=== PATIENT | female | born 1950 | race Caucasian/White ===

== ENCOUNTER 2017-05-17 15:42 | Inpatient (IN) | payer BC ==
[~2017-05-17] VITALS: Ht 170.2 cm; Wt 91.5 kg
[2017-08-09] VITALS (11 sets, daily range): BP systolic 104–178; BP diastolic 54–101; PULSE 50–89; TEMP 98–98.9
[2017-08-09] MEDS ORDERED: MULTI-VITAMIN W1 TA2 PO (05:52)
[2017-08-09] MEDS ORDERED: ASPIRIN 81M81 MG/TA2 PO (05:52)
[2017-08-09] MEDS ORDERED: VITAMIN E1000 U/CAP PO (05:53)
[2017-08-09] MEDS ORDERED: CALCIUM 600MG+D1 TAB PO (05:53)
[2017-08-09] MEDS ORDERED: OMEGA-3 1000 MG1 CAP PO (05:54)
[2017-08-09] MEDS ORDERED: MASON NATURAL500 MG PO (05:54)
[2017-08-09] MEDS ORDERED: FOLIC ACID 40400 MCG PO (05:55)
[2017-08-09] MEDS ORDERED: VITAMIN C500 MG PO (05:55)
[2017-08-09] MEDS ORDERED: ZESTRIL40 MG PO (05:56)
[2017-08-09] MEDS ORDERED: ATIVAN 0.50.5 MG/TAB PO (05:57)
[2017-08-09] MEDS ORDERED: NATURAL IRON65 MG (05:57)
[2017-08-10] VITALS (7 sets, daily range): BP systolic 120–165; BP diastolic 71–84; PULSE 81–87; TEMP 98–99.3
[2017-08-10 07:17] LABS: HEMATOCRIT 32.7 % (37.0-47.0); HEMOGLOBIN 10.8 g/dl (12.5-16.0)
[2017-08-11 03:18] VITALS: BP 152/77; PULSE 90; TEMP 98.9
[2017-08-11 06:43] LABS: HEMATOCRIT 30.9 % (37.0-47.0); HEMOGLOBIN 10.4 g/dl (12.5-16.0)
[2017-08-11] MEDS ORDERED: ASPI325T6 PO (07:17)
[2017-08-11] MEDS ORDERED: NORCO 325 MG-7.1 TAB PO (07:17)
[2017-08-11] MEDS ORDERED: ROXICODONE 55 MG/TAB PO (07:18)
[2017-08-11] MEDS ORDERED: TYLENOL 500MG500 MG PO (07:18)
[2017-08-11] MEDS ORDERED: COLACE 100100 MG/CAP PO (07:21)
[2017-08-11 07:39] VITALS: BP 153/79; PULSE 91; TEMP 98.6
[2017-08-11 11:40] VITALS: BP 155/83; PULSE 88; TEMP 98.3
[2017-08-11 15:57] VITALS: BP 154/83; PULSE 87; TEMP 97.8
== END 2017-08-11 17:00 | disposition home or self-care (01) | DRG 470 ==
LOC: JCC 08-09 05:16
PROVIDERS: Orthopaedic Surgery
PROC: 0SRC0J9 Replacement of Right Knee Joint with Synthetic Substitute, Cemented, Open Approach (ICD-10-PCS; principal; 2017-08-09 07:30)
DX: M17.11 Unilateral primary osteoarthritis, right knee (principal); I10 Essential (primary) hypertension; Z66 Do not resuscitate
CPT/HCPCS: A4314; A9284; C1713; C1776; J0690; J1885; J2250; J2405; J2704; J3010; J7120

== ENCOUNTER → 2017-07-29 | Outpatient (CLI) | payer BC | LOC: COL.LAB 11:05 | DX: Z01.812 Encounter for preprocedural laboratory examination (principal) ==

== ENCOUNTER 2019-03-15 19:57 | Emergency (ER) | payer BC ==
[~2019-03-15 19:57] MED LIST: ASPI325T6 PO; ASPIRIN 81M81 MG/TA2 PO; ATIVAN 0.50.5 MG/TAB PO; CALCIUM 600MG+D1 TAB PO; COLACE 100100 MG/CAP PO; FOLIC ACID 40400 MCG PO; MASON NATURAL500 MG PO; MULTI-VITAMIN W1 TA2 PO; NATURAL IRON65 MG; NORCO 325 MG-7.1 TAB PO; OMEGA-3 1000 MG1 CAP PO; ROXICODONE 55 MG/TAB PO; TYLENOL 500MG500 MG PO; VITAMIN C500 MG PO; VITAMIN E1000 U/CAP PO; ZESTRIL40 MG PO
[2019-03-15 20:02] VITALS: TEMP 98.2
[2019-03-15 20:15] LABS: BASO % 0.2 % (0.0-2.0); GRAN # 6.8 (1.4-6.5); GRAN % 80.9 % (42.2-75.2); HEMOGLOBIN 11.9 g/dl (12.5-16.0); LYMPH % 12.2 % (20.0-51.0); MEAN CELL VOLUME 92 fl (80.0-100.0); MEAN CORPUSCULAR HEMOGLOBIN 31 pg (27.0-31.0); MEAN CORPUSCULAR HGB CONC 33 g/dl (33.0-37.0); MEAN PLATELET VOLUME 9.8 fl (7.4-10.4); MONO # 0.5 (0.1-0.6); MONO % 6.1 % (1.7-9.3); PLATELET COUNT 172 K/mm3 (130-400); RED BLOOD COUNT 3.86 M/mm3 (4.10-5.30); REDCELL DISTRIBUTION WIDTH-CV 12.8 % (11.5-14.5)
[2019-03-15 20:18] LABS: HEMATOCRIT 35.6 % (37.0-47.0)
[2019-03-15 20:20] LABS: ALANINE AMINOTRANSFERASE 153 U/L (9-52); ALBUMIN 3.8 gm/dL (3.5-5.0); ALKALINE PHOSPHATASE 126 U/L (50-136); ANION GAP 8 mmol/L (7-16); AST,SGOT 207 U/L (15-37); BILIRUBIN,TOTAL 0.7 mg/dL (0.0-1.0); BLOOD UREA NITROGEN 11 mg/dL (7-17); CALCIUM 8.5 mg/dL (8.4-10.2); CARBON DIOXIDE 23 mmol/L (22-30); CHLORIDE 104 mmol/L (98-107); CREATININE, serum 0.94 (0.52-1.25); GLUCOSE 195 mg/dL (74-106); POTASSIUM 3.7 mmol/L (3.4-5.0); SODIUM 135 mmol/L (137-145); TOTAL PROTEIN 7.8 gm/dL (6.4-8.2)
[2019-03-15 20:31] LABS: TROPONIN-I < 0.012 ng/mL (0.000-0.035)
[2019-03-15] MEDS ORDERED: BONINE25 MG PO (22:04)
[2019-03-15 23:57] VITALS: BP 109/83; PULSE 70
== END 2019-03-15 23:40 | disposition home or self-care (01) ==
LOC: COL.ER 19:57
PROVIDERS: Family Medicine
DX: H83.03 Labyrinthitis, bilateral (principal)
CPT/HCPCS: J7030

== ENCOUNTER 2020-01-28 12:48 | Observation (INO) | payer BC ==
[~2020-01-28] VITALS: Ht 170.2 cm; Wt 90.9 kg
[~2020-01-28 12:48] MED LIST changes: +BONINE25 MG PO
[2020-01-28] MEDS ORDERED: OMEGA-3 1000 MG1 CAP PO (13:54)
[2020-01-28] MEDS ORDERED: ASPIRIN 81M81 MG/TA2 PO (13:54)
[2020-01-28 13:58] LABS: BASO % 0.3 % (0.0-2.0); GRAN # 7.9 (1.4-6.5); GRAN % 88.1 % (42.2-75.2); HEMATOCRIT 40.5 % (37.0-47.0); HEMOGLOBIN 13.7 g/dl (12.5-16.0); LYMPH # 0.6 (1.2-3.4); LYMPH % 6.9 % (20.0-51.0); MEAN CELL VOLUME 90 fl (80.0-100.0); MEAN CORPUSCULAR HEMOGLOBIN 31 pg (27.0-31.0); MEAN CORPUSCULAR HGB CONC 34 g/dl (33.0-37.0); MEAN PLATELET VOLUME 9.4 fl (7.4-10.4); MONO # 0.4 (0.1-0.6); MONO % 4.3 % (1.7-9.3); PLATELET COUNT 149 K/mm3 (130-400); RED BLOOD COUNT 4.48 M/mm3 (4.10-5.30)
[2020-01-28 14:10] LABS: ALANINE AMINOTRANSFERASE 35 U/L (4-34); ALBUMIN 4.3 gm/dL (3.5-5.0); ALKALINE PHOSPHATASE 80 U/L (50-136); ANION GAP 8 mmol/L (7-16); AST,SGOT 42 U/L (15-37); BILIRUBIN,TOTAL 0.9 mg/dL (0.0-1.0); BLOOD UREA NITROGEN 14 mg/dL (7-17); C-REACTIVE PROTEIN 6.5 mg/dL (0.0-0.9); CALCIUM 9.6 mg/dL (8.4-10.2); CARBON DIOXIDE 23 mmol/L (22-30); CHLORIDE 102 mmol/L (98-107); CREATININE, serum 0.89 (0.52-1.25); GLUCOSE 162 mg/dL (74-106); LIPASE 50 U/L (23-300); POTASSIUM 3.4 mmol/L (3.4-5.0); SODIUM 133 mmol/L (137-145); TOTAL PROTEIN 8.8 gm/dL (6.4-8.2)
[2020-01-28 14:11] LABS: INR 1.1 (0.8-3.0); PROTHROMBIN TIME 11.9 SECONDS (9.7-12.8)
[2020-01-28 14:22] LABS: TROPONIN-I < 0.012 ng/mL (0.000-0.035)
[2020-01-28 17:34] VITALS: BP 123/68; PULSE 95; TEMP 98.6
[2020-01-28 17:40] VITALS: BP 123/68; PULSE 95; TEMP 98.6
--- NOTE | 2020-01-28 19:59 | NUR ---
PT HAD AN UNEVENTFUL EVENING. SHE WILL BE HAVING A LEXISCAN IN THE MORNING. WILL BE NPO AT MIDNIGHT, AND HAVE NO CAFFEINE. PT IS A&OX4 AND INDEPENDENT IN THE ROOM. SHE IS IN HER OWN CLOTHING, AND WILL CHANGE INTO HER GOWN BEFORE THE LEXISCAN IN THE AM. PT HAS NO C/O PAIN, BUT SLIGHT DISCOMFORT IN THE CHEST DESCRIBED TIGHTNESS. ASIDE FROM THAT, PT IS ANXIOUS REGARDING HER COVID SWAB. SHE STATED THAT SHE SAW ON TV THE SYMPTOMS OF COVID, AND SHE THINKS SHE MAY HAVE PSYCHED HERSELF OUT. SHE IS VERY PLEASANT. CALL L[facility] BELONGINGS AT BEDSIDE. NO FURTHER CONCERNS. REPORT GIVEN TO ANTHONY DIAZ.
--- NOTE | 2020-01-28 20:00 | NUR ---
Received report from [place]. Seen patient awake, sitting in the recliner. She is alert and oriented. She still have chest tightness. Instructed patient she's on NPO by midnight. With INT on right hand. On room air. Lungs are clear. Call light within reach.
[2020-01-28 20:40] VITALS: BP 125/59; PULSE 108; TEMP 100.5
[2020-01-28 22:32] VITALS: TEMP 98.6
--- NOTE | 2020-01-28 22:43 | NUR ---
Patient had a temperature of 100.5F at around 2100H. She has a standing order of Ibuprofen for chest pain and it was given. Temp rechecked 98.6F. Called Dr. Soliman to update patient had 100.5F temp. Asked for an order of Tylenol in case patient will have a febrile episode.
[2020-01-28 23:47] VITALS: BP 95/58; PULSE 92; TEMP 100.3
[2020-01-29 04:10] VITALS: BP 100/60; PULSE 84; TEMP 99.5
--- NOTE | 2020-01-29 06:30 | NUR ---
[facility] staff called to ask when will be the covid results come back as they don't usuall do stress test to PUI. He said that he will call Dr. Gonzalez by 0730H to ask about it. Informed him that I will endorse it to day shift nurse as well.
[2020-01-29 07:15] LABS: ALANINE AMINOTRANSFERASE 110 U/L (4-34); ALBUMIN 3.9 gm/dL (3.5-5.0); ALKALINE PHOSPHATASE 93 U/L (50-136); ANION GAP 10 mmol/L (7-16); AST,SGOT 133 U/L (15-37); BILIRUBIN,TOTAL 1.5 mg/dL (0.0-1.0); BLOOD UREA NITROGEN 22 mg/dL (7-17); CARBON DIOXIDE 24 mmol/L (22-30); CHLORIDE 103 mmol/L (98-107); CHOLESTEROL 207 mg/dL (120-200); CHOLESTEROL RISK RATIO 5.3; CREATININE, serum 1.26 (0.52-1.25); GLUCOSE 142 mg/dL (74-106); HDL CHOLESTEROL 39 mg/dL; LDL CHOLESTEROL 147 mg/dL; POTASSIUM 3.6 mmol/L (3.4-5.0); SODIUM 137 mmol/L (137-145); TRIGLYCERIDE 107 mg/dL
[2020-01-29 07:18] LABS: BASO % 0.2 % (0.0-2.0); GRAN # 8.1 (1.4-6.5); GRAN % 82.1 % (42.2-75.2); HEMATOCRIT 37.8 % (37.0-47.0); HEMOGLOBIN 12.6 g/dl (12.5-16.0); LYMPH # 1.1 (1.2-3.4); LYMPH % 10.7 % (20.0-51.0); MEAN CELL VOLUME 93 fl (80.0-100.0); MEAN CORPUSCULAR HEMOGLOBIN 31 pg (27.0-31.0); MEAN CORPUSCULAR HGB CONC 33 g/dl (33.0-37.0); MEAN PLATELET VOLUME 10.3 fl (7.4-10.4); MONO # 0.7 (0.1-0.6); MONO % 6.6 % (1.7-9.3); PLATELET COUNT 160 K/mm3 (130-400); RED BLOOD COUNT 4.06 M/mm3 (4.10-5.30); REDCELL DISTRIBUTION WIDTH-CV 13.3 % (11.5-14.5)
[2020-01-29 07:25] LABS: TROPONIN-I < 0.012 ng/mL (0.000-0.035)
[2020-01-29 09:14] VITALS: BP 111/66; PULSE 90; TEMP 98.1
--- NOTE | 2020-01-29 09:37 | NUR ---
PT IN BED. EXCITED TO EAT AND DRINK, NOT COMPLAINING OF PAIN OR DISCOMFORT AT THIS TIME. PT ALERT AND ORIENTED. VITALS STABLE, ASSESSMETN PERFORMED MEDS GIVEN, NO OTHER NEEDS AT THIS TIME.
--- NOTE | 2020-01-29 10:28 | NUR ---
Basket Hand Weaver contacted the patient via cell phone to complete initial intake. The patient lives in [place] with her . The patient denies DME use and is independent with ADLs. The patient's PCP is Dr. Yoder and patient receives medication from [facility] with no difficulties. The patient has advanced directives in the EMR. The patient plans to return home at discharge. The patient does not have Medicare because she is insured through her work. There are no additional needs at this time.
[2020-01-29 11:47] VITALS: BP 106/66; PULSE 90; TEMP 98.4
[2020-01-29] MEDS ORDERED: NITROSTAT0.4 MG/TAB SL (14:19)
[2020-01-29] MEDS ORDERED: DOXYCYCLINE HY100 MG PO (14:34)
--- NOTE | 2020-01-29 16:45 | NUR ---
PT LEFT FLOOR WITH BELONGINGS, IV DC'D, DISHCARGE PAPERWORK GIVEN, PT VERBALIZED UNDERSTANDING ON IT FOR PAPERWORK THAT REQUIRED SIGNATURE. NO OTHER NEEDS AT THIS TIME.
== END 2020-01-29 16:45 | disposition home or self-care (01) ==
LOC: COL.ER 12:48 → MEDICAL 15:36
PROVIDERS: Emergency Medicine; Physician Assistant; ADMIT Family Medicine
DX: R07.9 Chest pain, unspecified (principal); Z11.59 Encounter for screening for other viral diseases; I10 Essential (primary) hypertension; K80.20 Calculus of gallbladder without cholecystitis without obstruction; Z79.82 Long term (current) use of aspirin; Z79.899 Other long term (current) drug therapy
CPT/HCPCS: 99222-AI; G0378; J1650; J7030; Q9967

== ENCOUNTER 2020-12-06 07:18 | Day surgery (SDC) | payer MEDICARE, BC ==
[~2020-12-06] VITALS: Ht 170.2 cm; Wt 95.9 kg
[~2020-12-06 07:18] MED LIST changes: +DOXYCYCLINE HY100 MG PO; +NITROSTAT0.4 MG/TAB SL
[2020-12-06 07:45] VITALS: BP 140/104; PULSE 87; TEMP 99
[2020-12-06 08:25] VITALS: BP 132/85; PULSE 73
--- NOTE | 2020-12-06 08:25 | NUR ---
Patient checked back into [facility] via ANTHONY Pires.
--- NOTE | 2020-12-06 08:55 | NUR ---
Dismissal instructions gone over with patient. Patient voices understanding and all questions answered.
--- NOTE | 2020-12-06 09:00 | NUR ---
Patient discharged to private vehicle at patient enterance. Patient leaves thanking staff for services.
== END 2020-12-06 09:00 | disposition home or self-care (01) ==
LOC: SDCO 07:18
DX: C20 Malignant neoplasm of rectum (principal); K62.6 Ulcer of anus and rectum; I10 Essential (primary) hypertension; R73.03 Prediabetes; I12.9 Hypertensive chronic kidney disease with stage 1 through stage 4 chronic kidney disease, or unspecified chronic kidney disease; N18.30 Chronic kidney disease, stage 3 unspecified; Z90.89 Acquired absence of other organs; Z96.651 Presence of right artificial knee joint; Z79.899 Other long term (current) drug therapy; Z79.82 Long term (current) use of aspirin; Z83.3 Family history of diabetes mellitus

== ENCOUNTER 2020-12-21 12:51 | Inpatient (IN) | payer MEDICARE, BC ==
[~2020-12-21] VITALS: Ht 170.2 cm; Wt 95.5 kg
[2020-12-21 13:44] LABS: BASO % 0.3 % (0.0-2.0); EOS % 0.1 % (0-4.0); GRAN # 5.5 (1.4-6.5); GRAN % 82.4 % (42.2-75.2); HEMOGLOBIN 12.9 g/dl (12.5-16.0); LYMPH # 0.9 (1.2-3.4); LYMPH % 13.2 % (20.0-51.0); MEAN CELL VOLUME 84 fl (80.0-100.0); MEAN CORPUSCULAR HEMOGLOBIN 31 pg (27.0-31.0); MEAN CORPUSCULAR HGB CONC 37 g/dl (33.0-37.0); MEAN PLATELET VOLUME 9.3 fl (7.4-10.4); MONO # 0.3 (0.1-0.6); MONO % 3.7 % (1.7-9.3); PLATELET COUNT 227 K/mm3 (130-400); RED BLOOD COUNT 4.13 M/mm3 (4.10-5.30); REDCELL DISTRIBUTION WIDTH-CV 12.1 % (11.5-14.5)
[2020-12-21 13:47] LABS: HEMATOCRIT 34.7 % (37.0-47.0)
[2020-12-21 13:52] LABS: INR 1.1 (0.8-3.0); PROTHROMBIN TIME 11.7 SECONDS (9.7-12.8)
[2020-12-21 14:11] LABS: ALANINE AMINOTRANSFERASE 18 U/L (4-34); ALBUMIN 4.4 gm/dL (3.5-5.0); ALKALINE PHOSPHATASE 72 U/L (50-136); ANION GAP 10 mmol/L (7-16); AST,SGOT 31 U/L (15-37); BILIRUBIN,TOTAL 0.9 mg/dL (0.0-1.0); BLOOD UREA NITROGEN 11 mg/dL (7-17); CALCIUM 8.9 mg/dL (8.4-10.2); CARBON DIOXIDE 18 mmol/L (22-30); CREATININE, serum 0.66 (0.52-1.25); GLUCOSE 157 mg/dL (74-106); TOTAL PROTEIN 8.7 gm/dL (6.4-8.2)
[2020-12-21 14:17] LABS: CHLORIDE 85 mmol/L (98-107); SODIUM 113 mmol/L (137-145)
[2020-12-21 14:18] LABS: C-REACTIVE PROTEIN < 0.5 mg/dL (0.0-0.9)
[2020-12-21 14:45] LABS: ALBUMIN 4.4 gm/dL (3.5-5.0); CREATININE, serum 0.62 (0.52-1.25); TOTAL PROTEIN 8.7 gm/dL (6.4-8.2)
[2020-12-21] MEDS ORDERED: NORVASC 5MG5 MG/TAB PO (15:40)
[2020-12-21 18:47] LABS: CALCIUM 9.4 mg/dL (8.4-10.2); CREATININE, serum 0.52 (0.52-1.25); POTASSIUM 4.2 mmol/L (3.4-5.0)
[2020-12-21 19:08] VITALS: BP 136/81; PULSE 79; TEMP 98
--- NOTE | 2020-12-21 20:40 | NUR ---
Patient is resting comfortably in bed watching TV. She is drinking her gatorade of what she was told Her labs went up a little bit her Sodium and chloride from where it was at. Otherwise she went to the bathroom with standby assisst. She still feel dizzy but she said its way better now. She denies pain and no complains noted. Call light is given and within reach. Continue to monitor.
[2020-12-21 22:54] LABS: PH 6 (5-8); SQUAMOUS EPITHELIAL None Seen /hpf; URINE APPEARANCE Cloudy; URINE BACTERIA Rare /hpf; URINE BILIRUBIN Negative (NEGATIVE); URINE BLOOD 2+ (NEGATIVE); URINE COLOR Yellow; URINE GLUCOSE Negative (NEGATIVE); URINE KETONE Trace (NEGATIVE); URINE LEUKOCYTE ESTERASE 3+ (NEGATIVE); URINE NITRATE Positive (NEGATIVE); URINE PROTEIN(semi-quant) Negative (NEGATIVE); URINE UROBILINOGEN Negative (NEGATIVE)
[2020-12-21 23:02] LABS: COLLECTION METHOD CLEAN CATCH
[2020-12-21 23:10] LABS: CALCIUM 8.8 mg/dL (8.4-10.2); CREATININE, serum 1.05 (0.52-1.25); POTASSIUM 3.8 mmol/L (3.4-5.0)
[2020-12-21 23:32] VITALS: BP 125/67; PULSE 74; TEMP 98.4
--- NOTE | 2020-12-22 01:08 | NUR ---
PA ordered 3% Hypertonic solution to run for 16hrs and 40 min. 30ml/hr. NS to run at 125 was charted off per PA ordered.
[2020-12-22 03:26] VITALS: BP 129/64; PULSE 75; TEMP 97.4
[2020-12-22 08:00] VITALS: BP 116/61; PULSE 80; TEMP 97.5
[2020-12-22 08:22] LABS: BASO % 0.2 % (0.0-2.0); EOS % 0.6 % (0-4.0); GRAN # 3.5 (1.4-6.5); GRAN % 68.9 % (42.2-75.2); LYMPH # 1.2 (1.2-3.4); LYMPH % 23.3 % (20.0-51.0); MEAN CELL VOLUME 87 fl (80.0-100.0); MEAN CORPUSCULAR HEMOGLOBIN 31 pg (27.0-31.0); MEAN CORPUSCULAR HGB CONC 36 g/dl (33.0-37.0); MEAN PLATELET VOLUME 9.4 fl (7.4-10.4); MONO # 0.3 (0.1-0.6); MONO % 6.6 % (1.7-9.3); PLATELET COUNT 207 K/mm3 (130-400); RED BLOOD COUNT 3.86 M/mm3 (4.10-5.30); REDCELL DISTRIBUTION WIDTH-CV 12.5 % (11.5-14.5)
--- NOTE | 2020-12-22 08:28 | NUR ---
Pt awake and alert upon entry to room, no C/O pain at this time. Shift assessments complete, assisted Pt to restroom, returned Pt to bed, left Pt call light in reach, bed in lowest position.
[2020-12-22 08:37] LABS: CALCIUM 8.7 mg/dL (8.4-10.2); CREATININE, serum 0.83 (0.52-1.25); POTASSIUM 3.6 mmol/L (3.4-5.0)
[2020-12-22 08:44] LABS: HEMATOCRIT 33.4 % (37.0-47.0)
--- NOTE | 2020-12-22 11:03 | NUR ---
SW met with patient to complete intake. Patient states that she lives in [facility] with her Rj [phone]. Patient provides that she does not utilize any DME, is independent with ADL's and does not utilize any HH services at this time. Patient states that her PCP is Dr. Barrett, and states that she is able to afford her medications. Patient provides that her son Surinder [phone] has been appointed as her DPOA-HC and her daughter Angela [phone] has been appointed as the Alt DPOA-HC. Patient states that her plan to go back to her home [place] and has no questions or concerns with doing so. SW will continue to follow. Plan: Home with spouse
[2020-12-22 12:40] VITALS: BP 109/71; PULSE 78; TEMP 97.4
--- NOTE | 2020-12-22 13:46 | NUR ---
Pt called nursing station, has C/O "double vision" contacted provider.
[2020-12-22 15:02] LABS: CALCIUM 9.3 mg/dL (8.4-10.2); CREATININE, serum 1.31 (0.52-1.25)
[2020-12-22 16:53] VITALS: BP 127/73; PULSE 85; TEMP 98
[2020-12-22 20:20] VITALS: BP 112/58; PULSE 83; TEMP 98
--- NOTE | 2020-12-22 21:11 | NUR ---
Patient sitting up in bed upon enter the room. Shift assessment completed. Patient A/O x4. Patient denies any pain or discomfort. Denies SOB, N/V or dizziness while at rest. Patient reports having vertigo upon get up and ambulate to the bathroom. Assisted patient to use the bathroom at this time. Patient reports feeling dizzy a little bit. Stand-by assist provided. Call light within reach. Encouraged patient to use call light when she needs to go to bathroom. Patient verbalized understanding.
[2020-12-22 22:33] LABS: CALCIUM 9.3 mg/dL (8.4-10.2); CREATININE, serum 0.93 (0.52-1.25); POTASSIUM 4.4 mmol/L (3.4-5.0)
[2020-12-22 23:53] VITALS: BP 132/72; PULSE 91; TEMP 97.6
[2020-12-23 05:30] VITALS: BP 140/83; PULSE 88; TEMP 98.2
[2020-12-23 07:04] LABS: BASO % 0.4 % (0.0-2.0); EOS % 0.6 % (0-4.0); GRAN % 63.6 % (42.2-75.2); HEMOGLOBIN 12.7 g/dl (12.5-16.0); LYMPH # 1.3 (1.2-3.4); LYMPH % 27.5 % (20.0-51.0); MEAN CELL VOLUME 90 fl (80.0-100.0); MEAN CORPUSCULAR HEMOGLOBIN 31 pg (27.0-31.0); MEAN CORPUSCULAR HGB CONC 35 g/dl (33.0-37.0); MEAN PLATELET VOLUME 9.4 fl (7.4-10.4); MONO # 0.4 (0.1-0.6); MONO % 7.5 % (1.7-9.3); PLATELET COUNT 238 K/mm3 (130-400); RED BLOOD COUNT 4.11 M/mm3 (4.10-5.30); REDCELL DISTRIBUTION WIDTH-CV 13.1 % (11.5-14.5)
[2020-12-23 07:05] LABS: HEMATOCRIT 36.8 % (37.0-47.0)
[2020-12-23 07:12] LABS: CALCIUM 9.2 mg/dL (8.4-10.2); CREATININE, serum 0.83 (0.52-1.25); MAGNESIUM 2.2 mg/dL (1.6-2.3); POTASSIUM 3.8 mmol/L (3.4-5.0)
[2020-12-23 08:12] VITALS: BP 141/76; PULSE 89; TEMP 98.7
--- NOTE | 2020-12-23 08:28 | NUR ---
Pt awake and alert upon entry to room, no C/O pain at this time. Shift assessments complete, left Pt call light in reach, bed in lowest position.
[2020-12-23] MEDS ORDERED: OMNICEF 300MG300 MG PO (09:12)
--- NOTE | 2020-12-23 09:53 | NUR ---
Inseamer attended clincal rounds with the team and patient to discharge home today. SW reviewed PT recommendation for outpatient PT. Patient is agreeable to this and would like an appointment set up at [facility] on [address]. ALLI contacted [facility] on [address] and made patient's first appointment for 12/25/20 @1030. ALLI provided appointment to unit aide tech to include in patient's discharge instructions. ALLI faxed patient records and orders to [facility]. Discharge Plan: Home with OP PT today
--- NOTE | 2020-12-23 09:58 | NUR ---
Initial visit; Patient thanked Pediatric Acute Care Unit Nurse for looking in on her and stated she will be going home this morning. Pediatric Acute Care Unit Nurse wished her well and offered God's blessings.
[2020-12-23 12:01] VITALS: BP 120/73; PULSE 68; TEMP 97.7
--- NOTE | 2020-12-23 13:11 | NUR ---
Pt discharged to home, discussed discharge information with Pt, answered questions. Pt escorted to entrance by PCT, Pt left with family via private transportation.
== END 2020-12-23 13:13 | disposition home or self-care (01) | DRG 641 ==
LOC: COL.ER 12:51 → MEDICAL 15:34
PROVIDERS: Family Medicine; Physician Assistant; Student in an Organized Health Care Education/Training Program; ADMIT Internal Medicine
DX: E87.1 Hypo-osmolality and hyponatremia (principal); N39.0 Urinary tract infection, site not specified; R53.81 Other malaise; E78.5 Hyperlipidemia, unspecified; I10 Essential (primary) hypertension; B96.20 Unspecified Escherichia coli [E. coli] as the cause of diseases classified elsewhere; Z96.651 Presence of right artificial knee joint; M19.90 Unspecified osteoarthritis, unspecified site; Z90.89 Acquired absence of other organs; Z79.82 Long term (current) use of aspirin
CPT/HCPCS: 99223-AI; 99232-AI; 99239; J0696; J1650; J7030; J7131

== ENCOUNTER 2021-01-10 11:00 | Outpatient (RCR) | payer MEDICARE, BC ==
[~2021-01-10 11:00] MED LIST changes: +NORVASC 5MG5 MG/TAB PO; +OMNICEF 300MG300 MG PO
== END 2021-01-20 10:16 | disposition home or self-care (01) ==
LOC: WSPT 11:00
DX: E87.1 Hypo-osmolality and hyponatremia (principal); R42 Dizziness and giddiness; R11.10 Vomiting, unspecified